=== PATIENT | male | born 1965 | race Two or more races ===

== ENCOUNTER 2020-02-21 15:23 | Emergency (ER) | payer OTHER ==
[~2020-02-21] VITALS: Ht 167.6 cm; Wt 88.9 kg
--- NOTE | 2020-02-21 15:45 | NUR ---
received patient aox4 from home with cc of left upper back abscess x 10 days with pain 8/10 , afebrile , vss , no complains of sob and chest pain , attached to monitor , will continue to monitor .
[2020-02-21] MEDS ORDERED: HYDROCODONE/APAP 5/325MG TABLET ONE (16:25)
[2020-02-21] MEDS ORDERED: LIDOCAINE 1%-EPI 1:100,000 20 ML VIAL ONE (16:26)
--- NOTE | 2020-02-21 16:28 | NUR ---
MIKI MAYFIELD AT BEDSIDE FOR I&D
[2020-02-21] MEDS: LIDOCAINE 1%-EPI 1:100,000 20 ML VIAL TP ONE (16:32)
[2020-02-21] MEDS: HYDROCODONE/APAP 5/325MG TABLET PO ONE (16:32)
--- NOTE | 2020-02-21 17:03 | NUR ---
Patient discharged to home in stable condition. Written and verbal after care instructions given. Patient verbalizes understanding of instruction.
[2020-02-21 17:04] VITALS: BP 131/70
== END 2020-02-21 17:05 | disposition home or self-care (01) ==
LOC: ER 15:27
DX: L03.312 Cellulitis of back [any part except buttock and flank] (principal); L02.212 Cutaneous abscess of back [any part, except buttock and flank]
CPT/HCPCS: 10060; 99283; A6403; A6407; J3490

== ENCOUNTER 2020-02-24 11:53 | Emergency (ER) | payer OTHER ==
[~2020-02-24] VITALS: Ht 167.6 cm; Wt 88.9 kg
--- NOTE | 2020-02-24 12:00 | NUR ---
PT CAME TO ER FOR WOUND CHECK ON RIGHT UPPER BACK. NO FEVER. NO S/SX OF INFECTION SUCH REDNESS ON SURROUNDING AREA. NO C/O PAIN AT THIS TIME. AWAITING FOR MD GARCIA
[2020-02-24 12:18] VITALS: BP 121/70
== END 2020-02-24 12:18 | disposition home or self-care (01) ==
LOC: ER 11:55
DX: L72.3 Sebaceous cyst (principal); F17.200 Nicotine dependence, unspecified, uncomplicated

== ENCOUNTER 2020-03-12 19:08 | Emergency (ER) | payer OTHER ==
[~2020-03-12] VITALS: Ht 167.6 cm; Wt 88.9 kg
--- NOTE | 2020-03-12 19:31 | NUR ---
PT C/O SWELLING ON RT GROIN AREA. PT AAOX4, VSS. RR EVEN & UNLABORED. PT SEEN & EVAL'D BY CATRACHITA ESCOBEDO. WILL CONT TO MONITOR.
[2020-03-12] MEDS ORDERED: DOXYCYCLINE HYCLATE (100 MG) 100 MG TABLET ONE (20:58)
[2020-03-12] MEDS ORDERED: HYDROCODONE/APAP 10/325MG TABLET ONE (20:58)
[2020-03-12] MEDS ORDERED: IBUPROFEN 400 MG TABLET ONE (20:59)
[2020-03-12] MEDS ORDERED: DOXYCYCLINE HYCLATE (100 MG) 100 MG TABLET PO ONE (21:00)
[2020-03-12] MEDS ORDERED: HYDROCODONE/APAP 10/325MG TABLET PO ONE (21:00)
[2020-03-12] MEDS ORDERED: IBUPROFEN 400 MG TABLET PO ONE (21:00)
[2020-03-12 21:10] VITALS: BP 128/71
--- NOTE | 2020-03-12 21:10 | NUR ---
Patient discharged to home in stable condition. Written and verbal after care instructions given. Patient verbalizes understanding of instruction.
== END 2020-03-12 21:11 | disposition home or self-care (01) ==
LOC: ER 19:13
DX: L02.214 Cutaneous abscess of groin (principal); L03.314 Cellulitis of groin; F17.200 Nicotine dependence, unspecified, uncomplicated
CPT/HCPCS: 10060; 76882; 99284; A6407